=== PATIENT | female | born 1985 | race Caucasian/White ===

== ENCOUNTER → 2021-12-07 10:40 | Outpatient (CLI) | payer BC, SELFPAY ==
[2021-12-07 17:08] LABS: Alanine Aminotransferase 20 U/L (12-78); Albumin Level 4.1 g/dl (3.5-5.0); Albumin/Globulin Ratio 1.5 (1.1-1.8); Alkaline Phosphatase 89 U/L (38-126); Anion Gap 15.3 mEq/L (5-15); Aspartate Amino Transferase 38 U/L (14-36); Bilirubin,Total 0.5 mg/dl (0.2-1.3); Blood Urea Nitrogen 17 mg/dl (7-17); Calcium 9.2 mg/dl (8.4-10.2); Carbon Dioxide 23 mmol/L (22.0-30.0); Chloride 106 mmol/L (98-107); Chol/HDL Ratio 3.6 (1-3.5); Cholesterol 200 mg/dl (140-200); Estimated Glomerular Filt Rate 70 ml/min (>60); GFR (African American) 85 ML/MIN (>60); Globulin 2.7 g/dL (1.3-3.2); Glucose 100 mg/dl (74-100); HDL Cholesterol 56 mg/dl (40-60); Potassium 4.3 mmoL/L (3.5-5.1); Sodium 140 mmol/L (136-145); Total Protein,Serum 6.8 g/dl (6.3-8.2); Triglycerides 75 mg/dl (30-150); VLDL Cholesterol 15 mg/dL (0-40)
[2021-12-07 17:19] LABS: Basophils # 0.1 K/mm3 (0-0.2); Basophils % 1.1 % (0.1-2.0); Eosinophils # 0.2 K/mm3 (0.0-0.4); Eosinophils % 2.7 % (0.1-12.0); Hematocrit 43.4 % (37.0-47.0); Lymphocytes # 1.7 K/mm3 (0.7-4.5); Lymphocytes % 24.6 % (10-50); Mean Corpuscular HGB Conc 34.6 g/dL (31.8-35.4); Mean Corpuscular Hemoglobin 33.6 pg (27.0-31.2); Mean Corpuscular Volume 97.1 fl (81-99); Mean Platelet Volume 10.4 fl (7.4-10.4); Monocytes # 0.5 K/mm3 (0.1-1.0); Monocytes % 6.3 % (1.7-9.3); Neutrophils # 4.6 K/mm3 (1.8-7.8); Neutrophils % 65.2 % (37.0-80.0); Platelet Count 238 K/mm3 (142-424); Red Blood Count 4.47 M/mm3 (4.20-5.40); Red Cell Distribution Width 13.4 % (11.5-17.5); White Blood Count 7.1 K/mm3 (4.8-10.8)
[2021-12-07 17:20] LABS: Direct LDL Cholesterol 107.03 mg/dL (100-129)
[2021-12-07 17:28] LABS: Free T4 (Free Thyroxine) 1.21 ng/dl (0.78-2.19)
[2021-12-07 17:39] LABS: Thyroid Stimulating Hormone 3.76 uIU/mL (0.465-4.68)
== END ==
PROVIDERS: PCP Emergency Medicine; Visit Provider Emergency Medicine
DX: R53.83 Other fatigue (principal); E55.9 Vitamin D deficiency, unspecified; Z79.899 Other long term (current) drug therapy
CPT/HCPCS: 80053; 80061; 82306; 84439; 84443; 85025

== ENCOUNTER → 2022-02-09 06:37 | Outpatient (CLI) | payer MEDICAID, SELFPAY ==
[2022-02-08 19:32] LABS: Amphetamine/Metha Screen,Urine Negative ng/ml (<1000)
[2022-02-08 19:33] LABS: Barbiturates Screen,Urine Negative ng/ml (<200); Benzodiazepines Screen,Urine Negative ng/ml (<200)
[2022-02-08 19:34] LABS: Cannabinoid Screen,Urine Positive ng/ml (<50); Cocaine Screen,Urine Negative ng/ml (<300)
[2022-02-08 19:35] LABS: Methadone Screen,Urine Negative ng/ml (<300)
[2022-02-08 19:36] LABS: Opiate Screen,Urine Positive ng/ml (<300); Phencyclidine Screen,Urine Negative ng/ml (<25)
== END ==
PROVIDERS: PCP Emergency Medicine; Visit Provider Emergency Medicine
DX: Z79.899 Other long term (current) drug therapy (principal)
CPT/HCPCS: 80305

== ENCOUNTER 2022-03-13 17:38 | Emergency (ER) | payer MEDICAID, SELFPAY ==
[2022-03-13 18:10] VITALS: BP 105/60; PULSE 71; RESP 19; TEMP 36.6; O2SAT 99; BMI 22.8
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
--- NOTE | 2022-03-13 18:28 | PC.NURSE ---
PATIENT SENT TO ER PER Conrado DONIS APRN FOR FURTHER EVALUATION. REPORT GIVEN TO Tsering CARDOZA RN BY Conrado DONIS APRN
[2022-03-13 18:32] VITALS: BP 112/64; PULSE 70; RESP 18; TEMP 36.7; O2SAT 99; BMI 22.8
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
--- NOTE | 2022-03-13 18:37 | PC.NURSE ---
ED MD AT BEDSIDE FOR EVALUATION
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
[2022-03-13 18:44] VITALS: BP 112/64; PULSE 64; O2SAT 100
[2022-03-13 18:45] VITALS: PULSE 60; O2SAT 98
--- NOTE | 2022-03-13 18:50 | PC.NURSE ---
PT REPORTS SHE IS A DIFFICULT IV STICK, ATTEMPT X 1 PT C/O PAIN. MD AWARE. STATES OK TO NOT HAVE IV, HAVE PT GIVE UA FOR URINE . PT AGREES
--- NOTE | 2022-03-13 18:55 | PC.NURSE ---
PT ASSISTED TO BR FOR URINE SPECIMEN
[2022-03-13 19:16] LABS: Urine Pregnancy, HCG Qual. Negative (Negative)
[2022-03-13 20:51] VITALS: BP 110/65; PULSE 62; RESP 16; TEMP 36.6; O2SAT 98
--- NOTE | 2022-03-13 20:54 | PC.NURSE ---
Patient left er without being given discharge instructions or medication for abrasions and bandages.
== END 2022-03-13 20:54 | disposition home or self-care (01) ==
LOC: UTC 18:22 → ER 18:30
PROVIDERS: Emergency Provider Emergency Medicine; PCP Emergency Medicine
DX: S90.812A Abrasion, left foot, initial encounter (principal); S30.810A Abrasion of lower back and pelvis, initial encounter; S00.01XA Abrasion of scalp, initial encounter; S16.1XXA Strain of muscle, fascia and tendon at neck level, initial encounter; Y93.89 Activity, other specified; Y92.9 Unspecified place or not applicable; Y99.9 Unspecified external cause status
CPT/HCPCS: 90714; 90471; 70450; 71046; 72125; 72128; 72131; 72170; 73610; 73630; 81025; 99285

== ENCOUNTER → 2022-04-07 06:20 | Outpatient (CLI) | payer MEDICAID, SELFPAY ==
[2022-04-07 19:27] LABS: Amphetamine/Metha Screen,Urine Negative ng/ml (<1000)
[2022-04-07 19:28] LABS: Barbiturates Screen,Urine Negative ng/ml (<200)
[2022-04-07 19:29] LABS: Benzodiazepines Screen,Urine Negative ng/ml (<200); Cannabinoid Screen,Urine Positive ng/ml (<50)
[2022-04-07 19:31] LABS: Cocaine Screen,Urine Negative ng/ml (<300)
[2022-04-07 19:32] LABS: Methadone Screen,Urine Negative ng/ml (<300); Opiate Screen,Urine Negative ng/ml (<300)
[2022-04-07 19:33] LABS: Phencyclidine Screen,Urine Negative ng/ml (<25)
== END ==
PROVIDERS: PCP Emergency Medicine; Visit Provider Emergency Medicine
DX: F41.9 Anxiety disorder, unspecified (principal)
CPT/HCPCS: 80305

== ENCOUNTER → 2022-08-02 11:51 | Outpatient (CLI) | payer MEDICAID, SELFPAY ==
[2022-08-02 16:32] LABS: Amphetamine/Metha Screen,Urine Negative ng/ml (<1000)
[2022-08-02 16:33] LABS: Barbiturates Screen,Urine Negative ng/ml (<200)
[2022-08-02 16:34] LABS: Benzodiazepines Screen,Urine Negative ng/ml (<200); Cannabinoid Screen,Urine Positive ng/ml (<50)
[2022-08-02 16:35] LABS: Cocaine Screen,Urine Negative ng/ml (<300)
[2022-08-02 16:36] LABS: Methadone Screen,Urine Negative ng/ml (<300); Opiate Screen,Urine Negative ng/ml (<300)
[2022-08-02 16:37] LABS: Phencyclidine Screen,Urine Negative ng/ml (<25)
== END ==
PROVIDERS: PCP Emergency Medicine; Visit Provider Emergency Medicine
DX: Z79.899 Other long term (current) drug therapy (principal)
CPT/HCPCS: 80305

== ENCOUNTER → 2022-09-22 15:50 | Outpatient (CLI) | payer MEDICAID, SELFPAY ==
[2022-09-22 16:27] LABS: Amphetamine/Metha Screen,Urine Negative ng/ml (<1000); Barbiturates Screen,Urine Negative ng/ml (<200)
[2022-09-22 16:28] LABS: Benzodiazepines Screen,Urine Negative ng/ml (<200)
[2022-09-22 16:29] LABS: Cannabinoid Screen,Urine Positive ng/ml (<50); Cocaine Screen,Urine Negative ng/ml (<300)
[2022-09-22 16:30] LABS: Methadone Screen,Urine Negative ng/ml (<300)
[2022-09-22 16:31] LABS: Opiate Screen,Urine Positive ng/ml (<300)
[2022-09-22 16:33] LABS: Phencyclidine Screen,Urine Negative ng/ml (<25)
== END ==
PROVIDERS: PCP Emergency Medicine; Visit Provider Emergency Medicine
DX: Z79.899 Other long term (current) drug therapy (principal)
CPT/HCPCS: 80305

== ENCOUNTER → 2022-09-30 13:46 | Outpatient (CLI) | payer MEDICAID, SELFPAY ==
--- NOTE | 2022-09-30 13:47 | MR_ITS ---
FINAL REPORT CLINICAL HISTORY: back pain. right leg weakness COMPARISON: none FINDINGS: Multiplanar MR imaging of the lumbar spine was performed without contrast. On the sagittal T2-weighted images, disc degeneration is seen at L5-S1. The vertebral alignment is normal. There is no evidence of fracture. No bony mass is identified. The conus has an unremarkable appearance. T12-L1: No significant central canal stenosis or neural foraminal narrowing. L1-2: No significant central canal stenosis or neuroforaminal narrowing. L2-3: Annular disc bulge. No significant central canal stenosis or neuroforaminal narrowing. L3-4: Annular disc bulge. No significant central canal stenosis or neuroforaminal narrowing. L4-5: Annular disc bulge. No significant central canal stenosis or neuroforaminal narrowing. L5-S1: Annular disc bulge. Right paracentral disc protrusion. Right S1 nerve root impingement. Mild right neuroforaminal narrowing. IMPRESSION: Degenerative disc disease as above. Reviewed, Interpreted and Dictated by Stas Henson III, MD Transcribed by Rachana Casas Authenticated and . [facility]
== END ==
PROVIDERS: PCP Emergency Medicine; Visit Provider Emergency Medicine
DX: M54.9 Dorsalgia, unspecified (principal); M54.50 Low back pain, unspecified
CPT/HCPCS: 72148; 76376

== ENCOUNTER 2022-10-14 15:30 | Outpatient (RCR) | payer MEDICAID, SELFPAY | END 2022-10-14 15:35 | disposition home or self-care (01) | LOC: PT 15:30 | PROVIDERS: PCP Emergency Medicine; Visit Provider Emergency Medicine | DX: M54.16 Radiculopathy, lumbar region (principal) | CPT/HCPCS: 97163 ==

== ENCOUNTER → 2022-10-20 13:33 | Outpatient (CLI) | payer MEDICAID, SELFPAY ==
[2022-10-20 20:19] LABS: Amphetamine/Metha Screen,Urine Negative ng/ml (<1000); Barbiturates Screen,Urine Negative ng/ml (<200)
[2022-10-20 20:20] LABS: Benzodiazepines Screen,Urine Negative ng/ml (<200)
[2022-10-20 20:21] LABS: Cannabinoid Screen,Urine Positive ng/ml (<50); Cocaine Screen,Urine Negative ng/ml (<300)
[2022-10-20 20:22] LABS: Methadone Screen,Urine Negative ng/ml (<300)
[2022-10-20 20:23] LABS: Phencyclidine Screen,Urine Negative ng/ml (<25)
[2022-10-20 23:14] LABS: Opiate Screen,Urine Negative ng/ml (<300)
== END ==
PROVIDERS: PCP Emergency Medicine; Visit Provider Emergency Medicine
DX: F41.9 Anxiety disorder, unspecified (principal)
CPT/HCPCS: 80305

== ENCOUNTER 2022-12-23 16:06 | Observation (INO) | payer MEDICAID, SELFPAY ==
[2022-12-23] VITALS (7 sets, daily range): BP systolic 116–154; BP diastolic 61–106; PULSE 45–56; RESP 16–20; TEMP 36.8–37.3; O2SAT 95–100; BMI 21.7; BMI 20.9
[2022-12-23 16:33] LABS: Basophils % 0.5 % (0.1-2.0); Eosinophils # 0.2 K/mm3 (0.0-0.4); Eosinophils % 2.9 % (0.1-12.0); Hematocrit 49.4 % (37.0-47.0); Hemoglobin 15.6 g/dL (12.2-16.2); Lymphocytes # 1.5 K/mm3 (0.7-4.5); Lymphocytes % 23.8 % (10-50); Mean Corpuscular HGB Conc 31.7 g/dL (31.8-35.4); Mean Corpuscular Hemoglobin 31.1 pg (27.0-31.2); Mean Platelet Volume 8.9 fl (7.4-10.4); Monocytes # 0.2 K/mm3 (0.1-1.0); Monocytes % 3.7 % (1.7-9.3); Neutrophils # 4.4 K/mm3 (1.8-7.8); Neutrophils % 69.1 % (37.0-80.0); Platelet Count 220 K/mm3 (142-424); Red Blood Count 5.03 M/mm3 (4.20-5.40); Red Cell Distribution Width 13.3 % (11.5-17.5); White Blood Count 6.4 K/mm3 (4.8-10.8)
[2022-12-23 16:42] LABS: Alanine Aminotransferase 30 U/L (12-78); Albumin Level 4.7 g/dl (3.5-5.0); Albumin/Globulin Ratio 1.6 (1.1-1.8); Alkaline Phosphatase 75 U/L (38-126); Anion Gap 15.6 mEq/L (5-15); Aspartate Amino Transferase 44 U/L (14-36); Bilirubin,Total 0.9 mg/dl (0.2-1.3); Blood Urea Nitrogen 11 mg/dl (7-17); Calcium 9.6 mg/dl (8.4-10.2); Carbon Dioxide 23 mmol/L (22.0-30.0); Chloride 105 mmol/L (98-107); Creatinine Clearance Estimated 89 mL/min (50-200); Estimated Glomerular Filt Rate 70 ml/min (>60); GFR (African American) 85 ML/MIN (>60); Globulin 2.9 g/dL (1.3-3.2); Glucose 137 mg/dl (74-100); Lipase 159 U/L (23-300); Potassium 3.6 mmoL/L (3.5-5.1); Sodium 140 mmol/L (136-145); Total Protein,Serum 7.6 g/dl (6.3-8.2)
[2022-12-23 16:58] LABS: HCG Qualitative, Serum Negative (Negative)
[2022-12-23 17:22] LABS: Microscopic, Urine URINE MICROSCOPIC (MICROSCOPIC)
[2022-12-23 17:23] LABS: Appearance,Urine CLEAR (Clear); Bilirubin,Urine Negative (Negative); Blood, Urine 2+ (Negative); Color,Urine YELLOW (Yellow); Glucose,Urine (UA) Negative (Negative); Ketones,Urine 3+ (Negative); Leukocyte Esterase,Urine Negative (Negative); Nitrate,Urine Negative (Negative); Protein,Urine TRACE (Negative); Specific Gravity, Urine 1.015 (1.005-1.030); Urobilinogen,Urine 0.2 EU/dl (0.2)
--- NOTE | 2022-12-23 17:25 | PC.NURSE ---
gave pt ice chips, visitor at bedside
[2022-12-23 17:33] LABS: PH,Urine >= 9.0 (5.0-8.5)
[2022-12-23 17:46] LABS: Bacteria,Urine Trace /lpf; Squamous Epithelial Cell,Urine Occasional #/hpf (0-5)
--- NOTE | 2022-12-23 17:58 | CT_ITS ---
PROCEDURE INFORMATION: Exam: CT Abdomen And Pelvis With Contrast Exam date and time: 12/23/2022 6:17 PM Age: 37 years old Clinical indication: Nausea and vomiting; Abdominal pain; Generalized; Prior surgery; Surgery date: 6+ months; Surgery type: Choleycystectomy, mirena iud placed. ; Additional info: N/v, pain TECHNIQUE: Imaging protocol: Computed tomography of the abdomen and pelvis with contrast. Radiation optimization: All CT scans at this facility use at least one of these dose optimization techniques: automated exposure control; mA and/or kV adjustment per patient size (includes targeted exams where dose is matched to clinical indication); or iterative reconstruction. Contrast material: ISOVUE; Contrast volume: 75 ml; Contrast route: IV; REPORTING DATA: Count of CT and Cardiac NM exams in prior 12 months: This patient has received 4 known CTs and 0 known cardiac nuclear medicine studies in the 12 months prior to the current study. COMPARISON: CR XR PELVIS 1-2V 13/03/2022 19:36 FINDINGS: Tubes, catheters and devices: Intrauterine device is in the expected location. Liver: Normal. No mass. Gallbladder and bile ducts: Gallbladder is absent. Pancreas: Normal. No ductal dilation. Spleen: Normal. No splenomegaly. Adrenal glands: Normal. No mass. Kidneys and ureters: Nonobstructing right renal calculus. Stomach and bowel: Bowel wall thickening of the small bowel and portions of colon. There are borderline dilated segments of proximal small bowel. Appendix: No evidence of appendicitis. Intraperitoneal space: Unremarkable. No free air. No significant fluid collection. Vasculature: The arteries demonstrate minimal atherosclerotic disease. Lymph nodes: Unremarkable. No enlarged lymph nodes. Urinary bladder: Unremarkable as visualized. Reproductive: Unremarkable as visualized. Bones/joints: Unremarkable. No acute fracture. Soft tissues: Unremarkable. IMPRESSION: 1. Nonspecific findings most likely representing enterocolitis with ileus. 2. Nonobstructing right renal calculus.
--- NOTE | 2022-12-23 18:25 | PC.NURSE ---
pt is at ct
[2022-12-23 18:32] LABS: Barbiturates Screen,Urine Negative ng/ml (<200); Benzodiazepines Screen,Urine Negative ng/ml (<200)
[2022-12-23 18:33] LABS: Amphetamine/Metha Screen,Urine Negative ng/ml (<1000); Cannabinoid Screen,Urine Positive ng/ml (<50)
[2022-12-23 18:34] LABS: Cocaine Screen,Urine Negative ng/ml (<300)
[2022-12-23 18:35] LABS: Methadone Screen,Urine Negative ng/ml (<300); Opiate Screen,Urine Positive ng/ml (<300)
[2022-12-23 18:36] LABS: Phencyclidine Screen,Urine Negative ng/ml (<25)
--- NOTE | 2022-12-23 19:17 | HMH.EDGENADL ---
Discharge Plan Disposition Patient Disposition: Admitted Condition: Fair Chief Complaint: Nausea/Vomiting/Diarrhea Prescriptions Prescriptions: No Action diclofenac sodium 1 % gel 2 g topical QID Qty: 100 0RF Rx Instructions: apply to single elbow, wrist or hand; for hand includes palm/fingers/back of hand trazodone 100 mg tablet 100 mg PO HS Qty: 30 2RF clonazepam [Klonopin] 0.5 mg tablet 0.5 mg PO TID Qty: 90 1RF gabapentin 600 mg tablet 600 mg PO TID Qty: 90 1RF oxycodone-acetaminophen [Percocet] 7.5-325 mg tablet 1 tab PO TID Qty: 90 0RF lidocaine 5 % adhesive patch,medicated 1 patch topical DAILY Qty: 30 3RF Rx Instructions: leave on most painful area for up to 12 hrs escitalopram oxalate [Lexapro] 10 mg tablet 10 mg PO DAILY Qty: 30 1RF Referrals Follow up/Referrals: Justin Frias MD [Primary Care Provider] - See instructions Clinical Impressions Clinical Impression: Ileus, Enterocolitis Discharge ED Provider: Jr Moore General Adult HPI General Chief complaint: Nausea/Vomiting/Diarrhea Stated complaint: Vomiting Time Seen by Provider: 12/23/22 16:41 Mode of Arrival: Wheelchair Source of Information: Patient Limitations: No Limitations Description of Symptoms (Recalled from ER Triage Doc. by RN): pt to ed c/o vomiting and bilateral UQ abd pain. pt states she was nauseous yesterday and started vomiting when she got home from work ths morning. pt repors she has had some cramping to her hands. History of Present Illness HPI narrative: 37yo F presents to the ER secondary to nausea and vomiting and abdominal pain. Reports nausea began yesterday and began vomiting when she got home from work this morning. No fever. Reports IUD in place. Underwent cholecystectomy several years ago. Related Data Previous Rx's Medication Instructions Recorded diclofenac sodium 1 % topical gel 2 g topical QID #100 grams 08/02/22 lidocaine 5 % topical patch 1 patch topical DAILY #30 ea 09/22/22 escitalopram oxalate 10 mg tablet 10 mg PO DAILY #30 tabs 10/20/22 (Lexapro) clonazepam 0.5 mg tablet (Klonopin) 0.5 mg PO TID #90 tabs 12/15/22 gabapentin 600 mg tablet 600 mg PO TID #90 tabs 12/15/22 oxycodone-acetaminophen 7.5 mg-325 1 tab PO TID #90 tabs 12/15/22 mg tablet (Percocet) trazodone 100 mg tablet 100 mg PO HS #30 tabs 12/15/22 Allergies Allergy/AdvReac Type Severity Reaction Status Date / Time No Known Allergies Allergy Verified 12/15/22 14:26 [facility] Disclaimer: The information contained in this section may have been updated after the patient was seen, as this information can be updated by other users. Medical History Encounter for insertion of intrauterine contraceptive device (IUD) Menorrhagia Surgical History Hx of cholecystectomy Social History Smoking Status: Current every day smoker tobacco type: cigarettes packs per day: 1 alcohol intake: never substance use type: marijuana current occupational status: unemployed Travel in the last 8 weeks: None ROS Obtained: Yes Systems reviewed as appropriate & no additional complaints except as documented Physical Exam General General appearance: alert and in no apparent distress Head Head exam: atraumatic Eye Eye exam: Present normal appearance and PERRL Neck Neck exam: Present normal inspection and trachea midline Respiratory Respiratory exam: Present normal lung sounds bilaterally; Absent respiratory distress Cardiovascular Cardiovascular exam: Present regular rate, normal rhythm and normal heart sounds Abdominal Exam Abdominal exam: Present soft, tenderness (Diffuse, mild) and normal bowel sounds; Absent distention Neurological Exam Neurological exam: Present alert, oriented X3 and CN II-XII intact Psychiatric Psych
[2022-12-23 19:25] LABS: Coronavirus 19, PCR Not Detected (NotDetected); Influenza A, PCR Not Detected (NotDetected); Influenza B, PCR Not Detected (NotDetected)
--- NOTE | 2022-12-23 19:30 | EXP.HP ---
History of Present Illness *Admission Date: 12/23/22 *Reason for visit:: Abdominal pain, nausea, vomiting *History of present illness: Ms. Fay is a 37-year-old female with a past medical history of chronic back pain and anxiety. She presents to due to a 1-day history of persistent abdominal pain associated with nausea and vomiting. She denies diarrhea or constipation, she reports her last normal bowel movement was on 12/22. In the ER, the patient underwent a CT of the abdomen and pelvis that showed non-specific findings representing enterocolitis with ileus. UDS was positive for THC and opiates. Serum hcg was negative. Urinalysis was unremarkable along with CBC and CMP. In the ER the patient was given Haldol, iv fluids and Beladonna. The patient was admitted with initial impression: Ileus. [facility] Disclaimer: The information contained in this section may have been updated after the patient was seen, as this information can be updated by other users. Medical History (Updated 12/23/22 @ 19:36 by Edmond Nguyen DNP) Anxiety disorder Chronic back pain Encounter for insertion of intrauterine contraceptive device (IUD) Menorrhagia Surgical History Hx of cholecystectomy Social History Smoking Status: Current every day smoker tobacco type: cigarettes packs per day: 1 alcohol intake: never substance use type: marijuana current occupational status: unemployed Travel in the last 8 weeks: None Review of Systems Constitutional Constitutional: Reports chills Eyes Eyes: Reports system reviewed and no additional complaints, except as documented ENT Ears, Nose, Mouth, and Throat: Reports system reviewed and no additional complaints, except as documented *Cardiovascular Cardiovascular: Reports system reviewed and no additional complaints, except as documented *Respiratory Respiratory: Reports system reviewed and no additional complaints, except as documented *Gastrointestinal Gastrointestinal: Reports abdominal pain, Reports nausea and Reports vomiting *Genitourinary Genitourinary: Reports system reviewed and no additional complaints, except as documented *Musculoskeletal Musculoskeletal: Reports back pain Integumentary/Breasts Skin/Breast: Reports system reviewed and no additional complaints, except as documented *Neurologic Neurologic: Reports system reviewed and no additional complaints, except as documented Psychiatric Psychiatric: Reports anxiety Endocrine Endocrine: Reports system reviewed and no additional complaints, except as documented Hematologic/Lymphatic Hematologic/Lymphatic: Reports system reviewed and no additional complaints, except as documented Allergic/Immunologic Allergic/Immunologic: Reports system reviewed and no additional complaints, except as documented Meds Home Medications and Allergies Home Medications Medication Instructions Recorded Confirmed Type clonazepam 0.5 mg tablet (Klonopin) 0.5 mg PO TID Anxiety 12/23/22 12/23/22 History diclofenac sodium 1 % topical gel 2 g topical QID Pain 12/23/22 12/23/22 History escitalopram oxalate 10 mg tablet 10 mg PO DAILY Anxiety 12/23/22 12/23/22 History (Lexapro) gabapentin 600 mg tablet 600 mg PO TID Pain 12/23/22 12/23/22 History lidocaine 5 % topical patch 1 patch topical DAILY Pain 12/23/22 12/23/22 History oxycodone-acetaminophen 7.5 mg-325 1 tab PO TID Pain 12/23/22 12/23/22 History mg tablet (Percocet) trazodone 100 mg tablet 100 mg PO HS Insomnia 12/23/22 12/23/22 History New Prescriptions to Start Prescriptions: Allergies Allergy/AdvReac Type Severity Reaction Status Date / Time No Known Allergies Allergy Verified 12/15/22 14:26 Exam Data for Last 24 hours Vital signs and Labs for Last 24 Hours: Temp Pulse Resp BP Pulse Ox 98.7 F 46 L 20 154/106 H 100
--- NOTE | 2022-12-23 19:32 | PC.NURSE ---
Rounded on pt. No needs or complaints voiced at this time.
--- NOTE | 2022-12-23 20:26 | PC.WOUNDNOTE ---
attempted to call report to second floor. the nurse states she will return my call in just a few minutes.
--- NOTE | 2022-12-23 20:36 | PC.NURSE ---
Updated family that we are waiting to call report to the floor nurse. He advised he was going to go home and shower and then would be back.
--- NOTE | 2022-12-23 20:41 | PC.NURSE ---
spoke with Shagufta Tsang on second for report
--- NOTE | 2022-12-23 20:57 | PC.NURSE ---
Pt arrived to the floor via wheelchair @[id number]
--- NOTE | 2022-12-23 21:19 | ECG_ITS ---
APPROVED REPORT Exam: Resting ECG HR:43 bpm ECG Measurements Heart Rate 43 AXES UT 147 P 73 QRSd 85 QRS 77 QT 498 T 66 QTc 445 Conclusion SINUS BRADYCARDIA POSSIBLE RIGHT VENTRICULAR CONDUCTION DELAY [RSR (QR) IN V1/V2] BORDERLINE ECG UNCONFIRMED REPORT Electronically signed by : Primitivo Vargas MD 12/25/2022 07:03:00
[2022-12-24 04:00] VITALS: BP 117/58; PULSE 51; RESP 18; TEMP 37.6; O2SAT 97; BMI 20.9
--- NOTE | 2022-12-24 07:00 | XR_ITS ---
FINAL REPORT CLINICAL HISTORY: ileus COMPARISON: none FINDINGS: SINGLE VIEW ABDOMEN A single view of the abdomen was obtained. There is a nonobstructive bowel gas pattern. There are no abnormally dilated loops of small bowel. There is an 8 mm calcification that projects over the right kidney suggesting a right renal stone. Surgical clips are present in the right upper quadrant suggesting a prior cholecystectomy. An IUD is noted in the pelvis. A moderate amount of stool is present in the colon. IMPRESSION: Nonobstructive bowel gas pattern. 8 mm calcification projecting over the right renal shadow suggesting a renal stone. Reviewed, Interpreted and Dictated by Ector Govea MD Transcribed by Adriana Lundberg Authenticated and [facility]
[2022-12-24 07:13] LABS: Chloride 107 mmol/L (98-107); Potassium 3.9 mmoL/L (3.5-5.1); Sodium 138 mmol/L (136-145)
[2022-12-24 07:14] LABS: Basophils % 0.1 % (0.1-2.0); Eosinophils # 0.1 K/mm3 (0.0-0.4); Eosinophils % 1.1 % (0.1-12.0); Hematocrit 40.3 % (37.0-47.0); Lymphocytes # 1.1 K/mm3 (0.7-4.5); Lymphocytes % 13.2 % (10-50); Mean Corpuscular HGB Conc 32.5 g/dL (31.8-35.4); Mean Corpuscular Hemoglobin 31.8 pg (27.0-31.2); Mean Corpuscular Volume 97.9 fl (81-99); Mean Platelet Volume 9.1 fl (7.4-10.4); Monocytes # 0.4 K/mm3 (0.1-1.0); Monocytes % 4.2 % (1.7-9.3); Neutrophils # 6.9 K/mm3 (1.8-7.8); Neutrophils % 81.4 % (37.0-80.0); Platelet Count 174 K/mm3 (142-424); Red Blood Count 4.12 M/mm3 (4.20-5.40); Red Cell Distribution Width 13.4 % (11.5-17.5); White Blood Count 8.4 K/mm3 (4.8-10.8)
[2022-12-24 07:16] LABS: Alanine Aminotransferase 31 U/L (12-78); Albumin/Globulin Ratio 1.5 (1.1-1.8); Alkaline Phosphatase 54 U/L (38-126); Anion Gap 12.9 mEq/L (5-15); Aspartate Amino Transferase 39 U/L (14-36); Bilirubin,Total 0.7 mg/dl (0.2-1.3); Blood Urea Nitrogen 9 mg/dl (7-17); Carbon Dioxide 22 mmol/L (22.0-30.0); Creatinine Clearance Estimated 110 mL/min (50-200); Estimated Glomerular Filt Rate 94 ml/min (>60); GFR (African American) 113 ML/MIN (>60); Globulin 2.7 g/dL (1.3-3.2); Total Protein,Serum 6.7 g/dl (6.3-8.2)
[2022-12-24 07:17] LABS: Calcium 8.7 mg/dl (8.4-10.2); Glucose 112 mg/dl (74-100)
[2022-12-24 07:27] LABS: Hemoglobin 13.3 g/dL (12.2-16.2)
--- NOTE | 2022-12-24 07:52 | HMH.PHAINT1 ---
Pharmacy Intervention Comments: home medication list verified using list from [employer] [facility]
[2022-12-24 07:54] VITALS: BP 115/57; PULSE 52; RESP 18; TEMP 37.2; O2SAT 99
--- NOTE | 2022-12-24 08:29 | EXP.SURG.CON ---
History of Present Illness *Admission Date: 12/23/22 *Reason for visit:: Ileus *History of present illness: Asked to see patient in consultation from hospitalist service for ileus Patient is a 37-year-old female from [facility] with history of chronic back pain and anxiety. She is on clonazepam, Lexapro, gabapentin, oxycodone, trazodone. She had recently been switched from hydrocodone to oxycodone. She has previously had cholecystectomy. She normally only moves her bowels about once weekly. She presented to [facility] emergency department yesterday afternoon on 12/23/2022 with a 1 day history of abdominal pain with associated nausea and vomiting. She was evaluated by Dr. Moore. She had a normal bowel movement on 12/22/2022. CT scan was performed which revealed findings of some bowel wall thickening of small bowel and portions of colon which was read as nonspecific findings most likely representing enterocolitis with ileus. CBC and CMP were unremarkable. Urine toxicology is positive for opiates and THC. Her symptoms persisted in the emergency department despite medical treatment. She was admitted for inpatient management with a diagnosis of ileus . Surgical consultation was obtained. [facility] Disclaimer: The information contained in this section may have been updated after the patient was seen, as this information can be updated by other users. Medical History (Updated 12/23/22 @ 19:36 by Edmond Nguyen DNP) Anxiety disorder Chronic back pain Encounter for insertion of intrauterine contraceptive device (IUD) Menorrhagia Surgical History Hx of cholecystectomy Social History Smoking Status: Current every day smoker tobacco type: cigarettes packs per day: 1 alcohol intake: never substance use type: marijuana current occupational status: unemployed Travel in the last 8 weeks: None Review of Systems *Neurologic Neurologic: Reports system reviewed and no additional complaints, except as documented Meds Home Medications and Allergies Home Medications Medication Instructions Recorded Confirmed Type clonazepam 0.5 mg tablet (Klonopin) 0.5 mg PO TID Anxiety 12/23/22 12/23/22 History diclofenac sodium 1 % topical gel 2 g topical QID Pain 12/23/22 12/23/22 History escitalopram oxalate 10 mg tablet 10 mg PO DAILY Anxiety 12/23/22 12/23/22 History (Lexapro) gabapentin 600 mg tablet 600 mg PO TID Pain 12/23/22 12/23/22 History lidocaine 5 % topical patch 1 patch topical DAILY Pain 12/23/22 12/23/22 History oxycodone-acetaminophen 7.5 mg-325 1 tab PO TID Pain 12/23/22 12/23/22 History mg tablet (Percocet) trazodone 100 mg tablet 100 mg PO HS Insomnia 12/23/22 12/23/22 History New Prescriptions to Start Prescriptions: Allergies Allergy/AdvReac Type Severity Reaction Status Date / Time No Known Allergies Allergy Verified 12/15/22 14:26 Exam (Inpt) Vital signs and Labs for Last 24 Hours: Temp Pulse Resp BP Pulse Ox 98.9 F 52 L 18 115/57 L 99 12/24/22 07:54 12/24/22 07:54 12/24/22 07:54 12/24/22 07:54 12/24/22 07:54 Laboratory Results - last 24 hr 12/23/22 16:15: WBC 6.4, RBC 5.03, Hgb 15.6, Hct 49.4 H, MCV 98.0, MCH 31.1, MCHC 31.7 L, RDW 13.3, Plt Count 220, MPV 8.9, Neut % (Auto) 69.1, Lymph % (Auto) 23.8, [place] % (Auto) 3.7, Eos % (Auto) 2.9, Baso % (Auto) 0.5, Neut # (Auto) 4.4, Lymph # (Auto) 1.5, [place] # (Auto) 0.2, Eos # (Auto) 0.2, Baso # (Auto) 0.0 12/23/22 16:15: Sodium 140, Potassium 3.6, Chloride 105, Carbon Dioxide 23, Anion Gap 15.6 H, BUN 11, Creatinine 0.90, Estimated Creat Clear 89, Estimated GFR 70, Est GFR ( Amer) 85, Glucose 137 H, Calcium 9.6, Total Bilirubin 0.9, AST 44 H, ALT 30, Alkaline Phosphatase 75, Total Protein 7.6, Albumin 4.7, Globulin 2.9, Albumin/Globulin Ratio 1.6, Lipase 159 12/23/22 16:15: Serum HCG, Qual
--- NOTE | 2022-12-24 09:01 | EXP.ACUTE.PN ---
Subjective *Date: 12/24/22 *Time: 09:44 Interval history: 37 year old female presents to the ED with c/o abdominal pain, nausea, and vomiting for one day. PMHX of chronic back pain and anxiety. She denies diarrhea or constipation, she reports her last normal bowel movement was on 12/22. Lab workup in the ED was unremarkable. Her CT of the abdomen and pelvis that showed non-specific findings representing enterocolitis with ileus.? UDS was positive for THC and opiates and urinalysis was unremarkable. In the ED the patient was given Haldol, iv fluids and Beladonna.? The patient's case was discussed with the Hospitalist team. The patient was addmitted for medical management of ileus and a surgical consult was placed. This morning the patient resting well. Denies any nausea or vomiting this morning. Her abdomen is soft and nontender with active bowel sounds. Her diet will be advanced to clear liquids and she will be started on a bowel regimen. Medical Exam Vital signs and Labs for Last 24 Hours: Vital Signs Temp Pulse Pulse Resp BP BP Pulse Ox 12/24/22 07:54 98.9 F 52 L 18 115/57 L 99 12/24/22 04:00 99.7 F H 51 L 18 117/58 L 97 12/23/22 22:00 99.2 F 51 L 18 135/72 95 12/23/22 20:42 98.3 F 53 L 16 116/66 12/23/22 19:32 45 L 124/76 95 12/23/22 17:01 46 L 154/106 H 100 12/23/22 16:31 54 L 135/61 100 12/23/22 16:15 56 L 151/99 H 100 12/23/22 16:18 98.7 F 52 L 20 151/99 H 100 Intake and Output 12/23/22 12/24/22 12/24/22 23:59 07:59 15:59 Intake Total 1000 / 1516 516 / 516 Output Total 0 / 0 0 / 0 Balance 1000 / 1516 516 / 516 Intake: Intake, Total IV Amount 1000 / 1516 516 / 516 0.9 % Sodium Chloride 1000ML 1, 516 / 516 000 ml @ 100 mls/hr IV .Q10H [facility] Rx#:[id number] Output: Output, Urine Amount 0 / 0 0 / 0 Other: Number of Unmeasured Voids 1 1 Weight 64.042 kg 64.042 kg Patient Weight 12/24/22 23:59 Weight 64.042 kg Laboratory Results - last 24 hr 12/23/22 16:15: WBC 6.4, RBC 5.03, Hgb 15.6, Hct 49.4 H, MCV 98.0, MCH 31.1, MCHC 31.7 L, RDW 13.3, Plt Count 220, MPV 8.9, Neut % (Auto) 69.1, Lymph % (Auto) 23.8, [place] % (Auto) 3.7, Eos % (Auto) 2.9, Baso % (Auto) 0.5, Neut # (Auto) 4.4, Lymph # (Auto) 1.5, [place] # (Auto) 0.2, Eos # (Auto) 0.2, Baso # (Auto) 0.0 12/23/22 16:15: Sodium 140, Potassium 3.6, Chloride 105, Carbon Dioxide 23, Anion Gap 15.6 H, BUN 11, Creatinine 0.90, Estimated Creat Clear 89, Estimated GFR 70, Est GFR ( Amer) 85, Glucose 137 H, Calcium 9.6, Total Bilirubin 0.9, AST 44 H, ALT 30, Alkaline Phosphatase 75, Total Protein 7.6, Albumin 4.7, Globulin 2.9, Albumin/Globulin Ratio 1.6, Lipase 159 12/23/22 16:15: Serum HCG, Qual Negative 12/23/22 17:16: Urine Color Yellow, Urine Appearance Clear, Urine pH >= 9.0 H, Ur Specific [place] 1.015, Urine Protein Trace, Urine Glucose (UA) Negative, Urine Ketones 3+, Urine Blood 2+, Urine Nitrate Negative, Urine Bilirubin Negative, Urine Urobilinogen 0.2, Ur Leukocyte Esterase Negative, Urine RBC 3-5, Urine WBC None, Ur Squamous Epith Cells Occasional, Urine Bacteria Trace 12/23/22 17:16: Urine Opiates Screen Positive H, Urine Methadone Screen Negative, Ur Barbituates Screen Negative, Ur Phencyclidine Scrn Negative, Ur Amphetamines Screen Negative, U Benzodiazepines Scrn Negative, Urine Cocaine Screen Negative, U Marijuana (THC) Screen Positive H 12/23/22 19:20: SARS-CoV-2 (PCR) Not detected, Influenza A Untype (PCR) Not detected, Influenza Type B (PCR) Not detected 12/24/22 06:55: WBC 8.4 D, RBC 4.12 L, Hgb 13.3 D, Hct 40.3, MCV 97.9, MCH 31.8 H, MCHC 32.5, RDW 13.4, Plt Count 174, MPV 9.1, Neut % (Auto) 81.4 H, Lymph % (Auto) 13.2, [place] % (Auto) 4.2, Eos % (Auto) 1.1, Baso % (Auto) 0.1, Neut # (Auto) 6.9, Lymph # (Auto) 1.1, [place] # (Auto) 0.4, Eos # (Auto) 0.1, Baso # (Auto) 0.0 12/24/22 06:55: Sodium 138, Potassium 3.9, Chloride 107, Carbon Dioxide 22, Anion Gap 12.9, BUN
--- NOTE | 2022-12-24 15:33 | EXP.DC.SUM ---
General Admission date:: 12/23/22 Discharge date: 12/24/22 HPI HPI HPI: Asked to see patient in consultation from hospitalist service for ileus Patient is a 37-year-old female from [facility] with history of chronic back pain and anxiety. She is on clonazepam, Lexapro, gabapentin, oxycodone, trazodone. She had recently been switched from hydrocodone to oxycodone. She has previously had cholecystectomy. She normally only moves her bowels about once weekly. [facility] afternoon on 12/23/2022 with a 1 day history of abdominal pain with associated nausea and vomiting. She was evaluated by Dr. Moore. She had a normal bowel movement on 12/22/2022. CT scan was performed which revealed findings of some bowel wall thickening of small bowel and portions of colon which was read as nonspecific findings most likely representing enterocolitis with ileus. CBC and CMP were unremarkable. Urine toxicology is positive for opiates and THC. Her symptoms persisted in the emergency department despite medical treatment. She was admitted for inpatient management with a diagnosis of ileus . Surgical consultation was obtained. Hospital Course Hospital Course Hospital Course: 37-year-old female with history of chronic back pain and anxiety disorder presents with a 1-day history of abdominal pain associated with nausea and vomiting, CT of the abdomen concerning for ileus. Has done well since admission. Patient having bowel movements. Tolerating oral intake. Requesting to go home. Given that she is tolerating oral nutrition and having bowel movements with no further nausea or vomiting, stable for discharge home. Problems addressed as follows: - Ileus Presents with 1-day history of abdominal pain associated with nausea, vomiting. CT obtained showing enterocolitis and ileus. No focal transition zone or significant dilation. Bowel rest overnight with n.p.o. Treated with IV fluids overnight. No overt electrolyte disturbances or endorgan damage. Surgery consulted, recommended advancing diet. Initiated on bowel regimen given her chronic opiate use. Has felt better through the morning. Tolerating liquids without difficulty. No further nausea or vomiting. Having bowel movements. Stable for discharge home. Antiemetics and bowel regimen sent to her pharmacy. - Anxiety Disorder: Continue home Klonopin as needed. Continue home Lexapro. - Chronic Back Pain: Continue home regimen with Percocet. Would consider decreasing back to hydrocodone as patient states she has not had much benefit with the change. We will initiate bowel regimen to address opiate-induced constipation and ileus. Docusate/senna daily as needed. Stable for discharge home. Exam Data for Last 24 hours Vital signs and Labs for Last 24 Hours: Temp Pulse Resp BP Pulse Ox 98.9 F 52 L 18 115/57 L 99 12/24/22 07:54 12/24/22 07:54 12/24/22 07:54 12/24/22 07:54 12/24/22 07:54 Laboratory Results - last 24 hr 12/23/22 16:15: WBC 6.4, RBC 5.03, Hgb 15.6, Hct 49.4 H, MCV 98.0, MCH 31.1, MCHC 31.7 L, RDW 13.3, Plt Count 220, MPV 8.9, Neut % (Auto) 69.1, Lymph % (Auto) 23.8, [place] % (Auto) 3.7, Eos % (Auto) 2.9, Baso % (Auto) 0.5, Neut # (Auto) 4.4, Lymph # (Auto) 1.5, [place] # (Auto) 0.2, Eos # (Auto) 0.2, Baso # (Auto) 0.0 12/23/22 16:15: Sodium 140, Potassium 3.6, Chloride 105, Carbon Dioxide 23, Anion Gap 15.6 H, BUN 11, Creatinine 0.90, Estimated Creat Clear 89, Estimated GFR 70, Est GFR ( Amer) 85, Glucose 137 H, Calcium 9.6, Total Bilirubin 0.9, AST 44 H, ALT 30, Alkaline Phosphatase 75, Total Protein 7.6, Albumin 4.7, Globulin 2.9, Albumin/Globulin Ratio 1.6, Lipase 159 12/23/22 16:15: Serum HCG, Qual Negative 12/23/22 17:16: Urine Color Yellow, Urine Appearance Clear, Urine pH >= 9.0 H, Ur Specific [place] 1.015, Urine Protein Trace, Urine Glucose (UA) Negative, Urine Ketones 3+, Urine Blood 2+, Urine
--- NOTE | 2022-12-24 15:44 | HMH.PHAINT1 ---
Pharmacy Intervention Comments: DISCHARGE MEDICATION COUNSELING PROVIDED. DISCUSSED THE FOLLOWING NEW MEDICATIONS: -PROMETHAZINE (FOR N/V, EVERY 8 HOURS NEEDED, SEDATION, BLURRY VISION, DRY MOUTH POSSIBLE) -DOCUSATE-SENNA (STOOL SOFTENER, DAILY NEEDED FOR CONSTIPATION, BLOATING/UPSET STOMACH POSSIBLE) PATIENT VERBALIZED NO QUESTIONS AT THIS TIME.
--- NOTE | 2022-12-27 15:12 | CARE MANAGER ---
Spoke with patient for post-discharge phone interview, no issues noted.
== END 2022-12-24 15:52 | disposition home or self-care (01) ==
LOC: ER 19:23 → 2ND 21:41
PROVIDERS: Nurse Practitioner Family; Admitting Provider Internal Medicine Adolescent Medicine; Emergency Provider Family Medicine; PCP Emergency Medicine; Visit Provider Internal Medicine Adolescent Medicine
DX: K56.7 Ileus, unspecified (principal); F17.210 Nicotine dependence, cigarettes, uncomplicated; M54.9 Dorsalgia, unspecified; G89.29 Other chronic pain; F41.9 Anxiety disorder, unspecified; Z79.899 Other long term (current) drug therapy
CPT/HCPCS: 36415; 74018; 74177; 80053; 80305; 81001; 83690; 84703; 85025; 87636; 93005; 99285; C9803; G0378; J2405; Q9967; U0003; U0005

== ENCOUNTER → 2023-02-08 19:01 | Outpatient (CLI) | payer MEDICAID, SELFPAY ==
[2023-02-08 13:56] LABS: Amphetamine/Metha Screen,Urine Negative ng/ml (<1000)
[2023-02-08 13:57] LABS: Barbiturates Screen,Urine Negative ng/ml (<200); Benzodiazepines Screen,Urine Negative ng/ml (<200)
[2023-02-08 13:58] LABS: Cannabinoid Screen,Urine Positive ng/ml (<50); Cocaine Screen,Urine Negative ng/ml (<300)
[2023-02-08 13:59] LABS: Methadone Screen,Urine Negative ng/ml (<300)
[2023-02-08 14:00] LABS: Opiate Screen,Urine Negative ng/ml (<300); Phencyclidine Screen,Urine Negative ng/ml (<25)
== END ==
PROVIDERS: PCP Emergency Medicine; Visit Provider Emergency Medicine
DX: Z79.899 Other long term (current) drug therapy (principal)
CPT/HCPCS: 80305

== ENCOUNTER 2023-03-12 19:09 | Emergency (ER) | payer MEDICAID, SELFPAY ==
[2023-03-12 19:10] VITALS: BP 146/84; PULSE 86; RESP 16; TEMP 37; O2SAT 98; BMI 21.2
--- NOTE | 2023-03-12 19:25 | PC.NURSE ---
small abrasion noted to left knee, 0.5 cm laceration noted to lower lip, no bleeding noted
--- NOTE | 2023-03-12 19:33 | HMH.EDGENADL ---
Discharge Plan Disposition Patient Disposition: Home, Self-Care Condition: Good Prescriptions Prescriptions: New amoxicillin-pot clavulanate 875-125 mg tablet 1 tab PO BID Qty: 14 0RF No Action gabapentin 600 mg tablet 600 mg PO TID Qty: 90 1RF clonazepam [Klonopin] 0.5 mg tablet 0.5 mg PO TID Qty: 90 1RF oxycodone-acetaminophen [Percocet] 7.5-325 mg tablet 1 tab PO TID Qty: 90 0RF trazodone 100 mg tablet 100 mg PO QHS Qty: 30 2RF escitalopram oxalate 10 mg tablet See Rx Instructions .ROUTE .COMPLEX Qty: 30 1RF Dose Instruction: TAKE 1 TABLET 1 TIME EACH DAY Rx Instructions: TAKE 1 TABLET 1 TIME EACH DAY lidocaine 5 % adhesive patch,medicated See Rx Instructions .ROUTE .COMPLEX Qty: 30 0RF Dose Instruction: APPLY 1 PATCH TOPICALLY ONCE DAILY AND LEAVE ON MOST PAINFUL AREA FOR UP TO 12 HOURS Rx Instructions: APPLY 1 PATCH TOPICALLY ONCE DAILY AND LEAVE ON MOST PAINFUL AREA FOR UP TO 12 HOURS diclofenac sodium 1 % gel 2 g topical QID Rx Instructions: apply to single elbow, wrist or hand; for hand includes palm/fingers/back of hand sennosides-docusate sodium [Stool Softener-Stimulant Laxat] 8.6-50 mg Tablet 1 tab PO DAILY PRN (Reason: Constipation) 30 Days Qty: 30 0RF promethazine 25 mg tablet 25 mg PO TID PRN (Reason: nausea and vomiting) 5 Days Qty: 15 0RF Referrals Follow up/Referrals: Justin Frias MD [Primary Care Provider] - See instructions Activity Restrictions/Add. Instructions Additional Instructions/Restrictions: At this time it was felt you are safe to be discharged home. If new or worsening symptoms please do not hesitate to return the emergency department. Please follow-up with your family doctor in 1 week for continued evaluation of healing of your laceration. Please take your antibiotics as prescribed for your tooth fracture and follow-up with your dentist as soon as you are able. Clinical Impressions Clinical Impression: Blunt trauma, Fracture of tooth, Laceration of lip Discharge ED Provider: Dallas Coker General Adult HPI General Chief complaint: Dental/Oral Stated complaint: AO08/ fall mouth inj Time Seen by Provider: 03/12/23 19:13 Mode of Arrival: Ambulatory Source of Information: Patient Limitations: No Limitations Description of Symptoms (Recalled from ER Triage Doc. by RN): pt reports she was walking up stairs and tripped on her shoe, complains of laceration to bottom lip and broken upper tooth, bleeding controlled History of Present Illness HPI narrative: Patient is a 37-year-old female with no pertinent past medical history presents emergency department for evaluation of traumatic injury sustained in a fall. Patient tripped while in difficult walking shoes going up stairs. No loss of consciousness. Patient struck her front teeth and bit her lip and presents here for continued evaluation. Last tetanus greater than 5 years ago. No other acute complaints at this time. Denies anticoagulation. Related Data Home Medications Medication Instructions Recorded Confirmed diclofenac sodium 1 % topical gel 2 g topical QID Pain 12/23/22 02/08/23 Previous Rx's Medication Instructions Recorded promethazine 25 mg tablet 25 mg PO TID PRN nausea and 12/24/22 vomiting 5 days #15 tabs sennosides 8.6 mg-docusate sodium 1 tab PO DAILY PRN Constipation 30 12/24/22 50 mg tablet (Stool days #30 tabs Softener-Stimulant Laxative) clonazepam 0.5 mg tablet (Klonopin) 0.5 mg PO TID Anxiety #90 tabs 02/08/23 gabapentin 600 mg tablet 600 mg PO TID Pain #90 tabs 02/08/23 oxycodone-acetaminophen 7.5 mg-325 1 tab PO TID Pain #90 tabs 02/08/23 mg tablet (Percocet) escitalopram oxalate 10 mg tablet See Rx Instructions .Route 02/15/23 .COMPLEX #30 tabs trazodone 100 mg tablet 100 mg PO QHS Insomnia #30 tabs 02/15/23 lidocaine 5 % topical patch See Rx Instructions .Route 02/18/23 .COMPLEX #30 patches
--- NOTE | 2023-03-12 20:55 | PC.NURSE ---
Provider at bedside doing laceration repair of lip
--- NOTE | 2023-03-12 20:58 | PC.NURSE ---
Misael Terry at
[2023-03-12 21:15] VITALS: BP 145/86; PULSE 84; RESP 16; TEMP 36.9
== END 2023-03-12 21:16 | disposition home or self-care (01) ==
PROVIDERS: Emergency Provider Emergency Medicine; PCP Emergency Medicine
DX: S02.5XXA Fracture of tooth (traumatic), initial encounter for closed fracture (principal); S01.511A Laceration without foreign body of lip, initial encounter; F41.9 Anxiety disorder, unspecified; F17.210 Nicotine dependence, cigarettes, uncomplicated; W10.9XXA Fall (on) (from) unspecified stairs and steps, initial encounter
CPT/HCPCS: 90715; 96372; 99283

== ENCOUNTER → 2023-03-23 23:32 | Outpatient (CLI) | payer MEDICAID, SELFPAY ==
[2023-03-23 19:18] LABS: Adenovirus,PCR Not Detected (NotDetected); Bordetella Pertussis Not Detected (NotDetected); Chlamydophila Pneumoniae, PCR Not Detected (NotDetected); Coronavirus 19, PCR Not Detected (NotDetected); Coronavirus 229E Not Detected (NotDetected); Coronavirus NL63 Not Detected (NotDetected); Coronavirus OC43 Not Detected (NotDetected); Coronovirus HKU1,PCR Not Detected (NotDetected); Human Metapneumovirus Not Detected (NotDetected); Influenza A, PCR Not Detected (NotDetected); Influenza AH1, 2009 Not Detected (NotDetected); Influenza AH1, PCR Not Detected (NotDetected); Influenza AH3,PCR Not Detected (NotDetected); Influenza B, PCR Not Detected (NotDetected); Mycoplasma Pneumoniae, PCR Not Detected (NotDetected); Parainfluenza 1, PCR Not Detected (NotDetected); Parainfluenza 2, PCR Not Detected (NotDetected); Parainfluenza 3, PCR Not Detected (NotDetected); Parainfluenza 4, PCR Not Detected (NotDetected); Respiratory Syncytial Virus Not Detected (NotDetected); Rhinovirus/Enterovirus Not Detected (NotDetected)
[2023-03-23 19:57] LABS: Basophils % 0.4 % (0.1-2.0); Eosinophils # 0.1 K/mm3 (0.0-0.4); Eosinophils % 1.7 % (0.1-12.0); Hematocrit 45.1 % (37.0-47.0); Hemoglobin 14.6 g/dL (12.2-16.2); Lymphocytes # 1.7 K/mm3 (0.7-4.5); Lymphocytes % 25.9 % (10-50); Mean Corpuscular HGB Conc 32.3 g/dL (31.8-35.4); Mean Corpuscular Hemoglobin 32.2 pg (27.0-31.2); Mean Corpuscular Volume 99.7 fl (81-99); Monocytes # 0.3 K/mm3 (0.1-1.0); Neutrophils # 4.3 K/mm3 (1.8-7.8); Platelet Count 166 K/mm3 (142-424); Red Blood Count 4.52 M/mm3 (4.20-5.40); Red Cell Distribution Width 13.2 % (11.5-17.5); White Blood Count 6.4 K/mm3 (4.8-10.8)
[2023-03-23 20:47] LABS: Alanine Aminotransferase 14 U/L (12-78); Albumin Level 4.1 g/dl (3.5-5.0); Albumin/Globulin Ratio 1.2 (1.1-1.8); Alkaline Phosphatase 71 U/L (38-126); Anion Gap 14.4 mEq/L (5-15); Aspartate Amino Transferase 25 U/L (14-36); Bilirubin,Total 0.3 mg/dl (0.2-1.3); Blood Urea Nitrogen 13 mg/dl (7-17); Calcium 9.3 mg/dl (8.4-10.2); Carbon Dioxide 25 mmol/L (22.0-30.0); Chloride 106 mmol/L (98-107); Chol/HDL Ratio 3.1 (1-3.5); Cholesterol 168 mg/dl (140-200); Estimated Glomerular Filt Rate 80 ml/min (>60); GFR (African American) 97 ML/MIN (>60); Globulin 3.3 g/dL (1.3-3.2); Glucose 70 mg/dl (74-100); HDL Cholesterol 55 mg/dl (40-60); Potassium 4.4 mmoL/L (3.5-5.1); Sodium 141 mmol/L (136-145); Total Protein,Serum 7.4 g/dl (6.3-8.2); Triglycerides 77 mg/dl (30-150); VLDL Cholesterol 15 mg/dL (0-40)
[2023-03-23 20:59] LABS: Direct LDL Cholesterol 91.34 mg/dL (100-129)
[2023-03-23 21:02] LABS: 25-OH Vitamin D, Total 29.9 ng/mL (30-100)
[2023-03-23 21:21] LABS: Thyroid Stimulating Hormone 1.74 uIU/mL (0.465-4.68)
== END ==
LOC: LAB.DROPOF 23:33
PROVIDERS: PCP Emergency Medicine; Visit Provider Emergency Medicine
DX: K52.9 Noninfective gastroenteritis and colitis, unspecified (principal); R11.0 Nausea; R53.83 Other fatigue; E55.9 Vitamin D deficiency, unspecified; R69 Illness, unspecified
CPT/HCPCS: 80053; 80061; 82306; 84436; 84443; 85025; 87581; 87632; 87798

== ENCOUNTER → 2023-04-12 16:52 | Outpatient (CLI) | payer MEDICAID, SELFPAY ==
[2023-04-12 17:34] LABS: Barbiturates Screen,Urine Negative ng/ml (<200)
[2023-04-12 17:35] LABS: Amphetamine/Metha Screen,Urine Negative ng/ml (<1000)
[2023-04-12 17:37] LABS: Benzodiazepines Screen,Urine Negative ng/ml (<200); Cocaine Screen,Urine Negative ng/ml (<300)
[2023-04-12 17:38] LABS: Cannabinoid Screen,Urine Positive ng/ml (<50)
[2023-04-12 17:41] LABS: Methadone Screen,Urine Negative ng/ml (<300); Phencyclidine Screen,Urine Negative ng/ml (<25)
[2023-04-12 17:42] LABS: Opiate Screen,Urine Positive ng/ml (<300)
== END ==
PROVIDERS: PCP Emergency Medicine; Visit Provider Emergency Medicine
DX: Z79.899 Other long term (current) drug therapy (principal)
CPT/HCPCS: 80305

== ENCOUNTER → 2023-06-08 08:42 | Outpatient (CLI) | payer MEDICAID, SELFPAY ==
[2023-06-08 23:36] LABS: Amphetamine/Metha Screen,Urine Negative ng/ml (<1000)
[2023-06-08 23:37] LABS: Barbiturates Screen,Urine Negative ng/ml (<200)
[2023-06-08 23:38] LABS: Benzodiazepines Screen,Urine Negative ng/ml (<200); Cannabinoid Screen,Urine Positive ng/ml (<50)
[2023-06-08 23:39] LABS: Cocaine Screen,Urine Positive ng/ml (<300)
[2023-06-08 23:40] LABS: Methadone Screen,Urine Negative ng/ml (<300); Opiate Screen,Urine Negative ng/ml (<300)
[2023-06-08 23:41] LABS: Phencyclidine Screen,Urine Negative ng/ml (<25)
== END ==
PROVIDERS: PCP Emergency Medicine; Visit Provider Emergency Medicine
DX: N39.0 Urinary tract infection, site not specified (principal); Z79.899 Other long term (current) drug therapy
CPT/HCPCS: 80305; 87086

== ENCOUNTER → 2023-06-15 13:31 | Outpatient (CLI) | payer MEDICAID, SELFPAY ==
[2023-06-15 15:59] LABS: Amphetamine/Metha Screen,Urine Negative ng/ml (<1000)
[2023-06-15 16:00] LABS: Barbiturates Screen,Urine Negative ng/ml (<200); Benzodiazepines Screen,Urine Negative ng/ml (<200)
[2023-06-15 16:02] LABS: Cannabinoid Screen,Urine Positive ng/ml (<50); Cocaine Screen,Urine Negative ng/ml (<300)
[2023-06-15 16:03] LABS: Methadone Screen,Urine Negative ng/ml (<300)
[2023-06-15 16:04] LABS: Opiate Screen,Urine Negative ng/ml (<300); Phencyclidine Screen,Urine Negative ng/ml (<25)
== END ==
PROVIDERS: PCP Emergency Medicine; Visit Provider Emergency Medicine
DX: Z02.1 Encounter for pre-employment examination (principal)
CPT/HCPCS: 80305

== ENCOUNTER → 2023-07-05 08:49 | Outpatient (CLI) | payer MEDICAID, SELFPAY ==
[2023-07-05 18:59] LABS: Basophils % 0.7 % (0.1-2.0); Eosinophils # 0.2 K/mm3 (0.0-0.4); Eosinophils % 3.1 % (0.1-12.0); Hematocrit 42.6 % (37.0-47.0); Hemoglobin 14.8 g/dL (12.2-16.2); Lymphocytes % 35.6 % (10-50); Mean Corpuscular HGB Conc 34.6 g/dL (31.8-35.4); Mean Corpuscular Volume 95.2 fl (81-99); Mean Platelet Volume 9.5 fl (7.4-10.4); Monocytes # 0.4 K/mm3 (0.1-1.0); Monocytes % 7.7 % (1.7-9.3); Neutrophils % 52.9 % (37.0-80.0); Platelet Count 247 K/mm3 (142-424); Red Blood Count 4.48 M/mm3 (4.20-5.40); Red Cell Distribution Width 13.7 % (11.5-17.5); White Blood Count 5.6 K/mm3 (4.8-10.8)
[2023-07-05 20:04] LABS: Alanine Aminotransferase 13 U/L (12-78); Albumin Level 4.1 g/dl (3.5-5.0); Albumin/Globulin Ratio 1.5 (1.1-1.8); Alkaline Phosphatase 63 U/L (38-126); Aspartate Amino Transferase 21 U/L (14-36); Bilirubin,Total 0.4 mg/dl (0.2-1.3); Blood Urea Nitrogen 12 mg/dl (7-17); Calcium 8.7 mg/dl (8.4-10.2); Carbon Dioxide 27 mmol/L (22.0-30.0); Chloride 106 mmol/L (98-107); Estimated Glomerular Filt Rate 70 ml/min (>60); GFR (African American) 84 ML/MIN (>60); Globulin 2.8 g/dL (1.3-3.2); Glucose 88 mg/dl (74-100); Sodium 130 mmol/L (136-145); Total Protein,Serum 6.9 g/dl (6.3-8.2)
[2023-07-05 20:32] LABS: Thyroid Stimulating Hormone 3.82 uIU/mL (0.465-4.68)
[2023-07-05 23:05] LABS: Barbiturates Screen,Urine Negative ng/ml (<200)
[2023-07-05 23:06] LABS: Benzodiazepines Screen,Urine Negative ng/ml (<200)
[2023-07-05 23:07] LABS: Amphetamine/Metha Screen,Urine Negative ng/ml (<1000)
[2023-07-05 23:08] LABS: Cocaine Screen,Urine Negative ng/ml (<300)
[2023-07-05 23:09] LABS: Cannabinoid Screen,Urine Positive ng/ml (<50); Methadone Screen,Urine Negative ng/ml (<300)
[2023-07-05 23:10] LABS: Opiate Screen,Urine Negative ng/ml (<300); Phencyclidine Screen,Urine Negative ng/ml (<25)
== END ==
PROVIDERS: PCP Internal Medicine; Visit Provider Internal Medicine
DX: R53.83 Other fatigue (principal); F41.9 Anxiety disorder, unspecified; Z79.899 Other long term (current) drug therapy
CPT/HCPCS: 80053; 80305; 84443; 85025

== ENCOUNTER 2023-08-09 19:09 | Outpatient (CLI) | payer MEDICAID, SELFPAY ==
[2023-08-09 22:57] LABS: Amphetamine/Metha Screen,Urine Negative ng/ml (<1000)
[2023-08-09 22:58] LABS: Barbiturates Screen,Urine Negative ng/ml (<200); Benzodiazepines Screen,Urine Positive ng/ml (<200)
[2023-08-09 22:59] LABS: Cannabinoid Screen,Urine Positive ng/ml (<50)
[2023-08-09 23:00] LABS: Cocaine Screen,Urine Negative ng/ml (<300); Methadone Screen,Urine Negative ng/ml (<300)
[2023-08-09 23:01] LABS: Opiate Screen,Urine Negative ng/ml (<300); Phencyclidine Screen,Urine Negative ng/ml (<25)
[2023-08-14 11:22] LABS: Alprazolam Positive (.); Benzodiazepines Positive ng/mL (Cutoff=100); Clonazepam Negative (Cutoff=100); Flurazepam Negative (Cutoff=100); Lorazepam Negative (Cutoff=100); Midazolam Negative (Cutoff=100); Oxycodone Positive (.); Oxycodone Confirm 2198 ng/mL (Cutoff=100); Oxymorphone Positive (.); Oxymorphone Confirm 1300 ng/mL (Cutoff=100); Temazepam Negative (Cutoff=100); Triazolam Negative (Cutoff=100)
[2023-08-17 11:39] LABS: Gabapentin,Urine 484.9 ug/mL (.)
== END 2023-08-09 23:59 ==
LOC: LAB.DROPOF 19:09
PROVIDERS: PCP Nurse Practitioner Family; Visit Provider Nurse Practitioner Family
DX: Z79.899 Other long term (current) drug therapy (principal); G89.29 Other chronic pain
CPT/HCPCS: 80307; 80346; 80365

== ENCOUNTER → 2023-08-10 14:10 | Outpatient (POV) | payer MEDICAID, SELFPAY ==
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
[2023-08-10 14:43] VITALS: BP 110/81; PULSE 112; RESP 18; O2SAT 95; BMI 21.7
== END ==
LOC: SC.PAIN 14:11
PROVIDERS: PCP Internal Medicine; Visit Provider Nurse Practitioner Family
DX: M54.42 Lumbago with sciatica, left side (principal); M54.41 Lumbago with sciatica, right side; G89.29 Other chronic pain; M54.2 Cervicalgia; M25.551 Pain in right hip; M25.552 Pain in left hip; M46.1 Sacroiliitis, not elsewhere classified
CPT/HCPCS: 99202; G0463

== ENCOUNTER 2023-08-23 10:16 | Day surgery (SDC) | payer MEDICAID, SELFPAY ==
[2023-08-23 10:33] VITALS: BP 122/77; PULSE 86; RESP 16; TEMP 36.8; O2SAT 99; BMI 22.3
[2023-08-23] MEDS: BUPIVACAINE 0.25% 10ML INJ 25 MG IJ (10:42)
[2023-08-23 10:43] VITALS: BP 119/68; PULSE 77; RESP 18; O2SAT 100
[2023-08-23] MEDS: methylPREDNISolone ACETATE 80MG/ML VIAL 80 MG (10:43)
[2023-08-23] MEDS: LIDOCAINE 1% 5ML PF VIAL 5 ML (10:43)
[2023-08-23 10:44] VITALS: BP 119/68; PULSE 84; RESP 18; O2SAT 100
--- NOTE | 2023-08-23 10:46 | P.PCN_ITS ---
Procedure Date: 08/23/23 Time: 10:40 Anesthesiologist:: Chivo Martinez CRNA Complications:: None Pre-procedure Diagnosis:: Bilateral sacroiliitis. Post-procedure Diagnosis:: Same. Indications for Procedure:: Patient is a very pleasant 38-year-old female comes our clinic today for bilateral sacroiliac joint injection. Patient reports bilateral posterior hip pain. Also reports low lumbar back pain off the midline bilaterally. She rates her pain 7/10. Procedure Details:: Procedure: Bilateral sacroiliac joint injections under fluoroscopy Informed consent was obtained and the risks and benefits of the procedure were explained to the patient.~ The patient was taken to the procedure room and noninvasive monitors were placed including a noninvasive blood pressure cuff and pulse oximeter.~ The patient was placed prone on the procedure table. Both hips were cleansed using Betadine as a cleansing solution. C-arm fluoroscopy was used to view the right sacroiliac joint.~ The skin and subcutaneous tissues were anesthetized using lidocaine 1.5% and a 25-gauge needle.~ After this, a 22-gauge spinal needle was inserted under fluoroscopic guidance into the inferior aspect of the right sacroiliac joint.~ Omnipaque dye was injected and good spread was seen throughout the joint.~ After this, approximately 5 mL of bupivacaine, 0.25% and Depo-Medrol, 40 mg was incrementally injected into the right sacroiliac joint. We then moved to the left sacroiliac joint.~ The skin and subcutaneous tissues were anesthetized using lidocaine 1.5% and a 25-gauge needle.~ After this, a 22- gauge spinal needle was inserted under fluoroscopic guidance into the inferior aspect of the left sacroiliac joint.~ Omnipaque dye was injected and good spread was seen throughout the joint. After this, approximately 5 mL of bupivacaine, 0.25% and Depo-Medrol, 40 mg was incrementally injected into the left sacroiliac joint.~ The patient tolerated the procedure well with no complications. The patient was observed in the Pain Clinic and then was discharged home neurologically intact. Plan and Disposition:: Patient was discharged without incident.
[2023-08-23 10:50] VITALS: BP 123/78; PULSE 77; RESP 16; O2SAT 99
== END 2023-08-23 10:50 | disposition home or self-care (01) ==
PROVIDERS: PCP Internal Medicine; Visit Provider Nurse Anesthetist, Certified Registered
DX: M46.1 Sacroiliitis, not elsewhere classified (principal)
CPT/HCPCS: 27096; G0260; J1040

== ENCOUNTER → 2023-09-09 13:32 | Outpatient (POV) | payer MEDICAID, SELFPAY ==
[2023-09-09 13:41] VITALS: BP 137/86; PULSE 87; RESP 18; O2SAT 98; BMI 22.3
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
== END ==
LOC: SC.PAIN 13:32
PROVIDERS: PCP Internal Medicine; Visit Provider Nurse Practitioner Family
DX: M51.16 Intervertebral disc disorders with radiculopathy, lumbar region (principal); M46.1 Sacroiliitis, not elsewhere classified; M25.551 Pain in right hip; M25.552 Pain in left hip; M25.561 Pain in right knee; M25.562 Pain in left knee
CPT/HCPCS: 99212; G0463

== ENCOUNTER 2023-09-09 14:03 | Outpatient (CLI) | payer MEDICAID, SELFPAY ==
--- NOTE | 2023-09-09 14:07 | XR_ITS ---
FINAL REPORT CLINICAL HISTORY: MID BACK PAIN COMPARISON: None FINDINGS: AP, lateral, and swimmer''s views of the thoracic spine were obtained. There is no prior exam for comparison. There is no acute fracture or malalignment. Vertebral body height is preserved. Paraspinal soft tissues are within normal limits. IMPRESSION: No acute osseous abnormality of the thoracic spine. Reviewed, Interpreted and Dictated by Stas Henson III, MD Transcribed by Adriana Lundberg Authenticated and [facility]
== END 2023-09-09 23:59 ==
LOC: RAD 14:04
PROVIDERS: PCP Internal Medicine; Visit Provider Anesthesiology
DX: M54.6 Pain in thoracic spine (principal)
CPT/HCPCS: 72072

== ENCOUNTER 2023-09-27 13:28 | Day surgery (SDC) | payer MEDICAID, SELFPAY ==
[2023-09-27 13:43] VITALS: BP 101/67; PULSE 78; RESP 18; TEMP 36.7; O2SAT 100; BMI 22.8
--- NOTE | 2023-09-27 13:57 | EXP.PAIN.PRO ---
Procedure Date: 09/27/23 Time: 14:00 Anesthesiologist:: Chivo Martinez CRNA Complications:: None Pre-procedure Diagnosis:: Degenerative disc lumbar spine multilevels. Lumbar radiculopathy. Post-procedure Diagnosis:: Same Indications for Procedure:: Patient is a pleasant 38-year-old female comes to clinic today for lumbar epidural steroid injection at L5-S1 level. Patient reports low back pain as well as bilateral hip and leg radicular symptoms. She rates her pain 7/10. Procedure Details:: Procedure: Lumbar epidural steroid injection under fluoroscopy Informed consent was obtained and the risks and benefits of the procedure were explained to the patient. The patient was taken to the procedure room and noninvasive monitors placed, including noninvasive blood pressure cuff and pulse oximeter. The back was viewed using C-arm Fluoroscopy and prepped using Chloraprep as a cleansing solution and the L5-S1 interspace was palpated. Skin and subcutaneous tissues were anesthetized using lidocaine 1.5% and a 25-gauge needle. After this, an 18-gauge Touhy epidural needle was placed into the L5-S1 interspace and advanced using fluoroscopic guidance and loss of resistance to air until the epidural space was encountered. After confirmation of needle placement in the epidural space, with dye, a solution containing normal saline, 3 mL and Depo-Medrol 80 mg were incrementally injected into the lumbar epidural space. The patient tolerated the procedure well with no complications. The patient was observed in the Pain Clinic and then discharged home neurologically intact. Plan and Disposition:: Patient was discharged without incident.
[2023-09-27 14:00] VITALS: BP 99/60; PULSE 60; RESP 18; O2SAT 100
[2023-09-27 14:50] VITALS: BP 92/56; PULSE 68; RESP 18; O2SAT 100
[2023-09-27] MEDS: methylPREDNISolone ACETATE 80MG/ML VIAL 80 MG (14:50)
[2023-09-27 14:51] VITALS: BP 92/56; PULSE 68; RESP 18; O2SAT 100
== END 2023-09-27 14:00 | disposition home or self-care (01) ==
PROVIDERS: PCP Internal Medicine; Visit Provider Nurse Anesthetist, Certified Registered
DX: M51.16 Intervertebral disc disorders with radiculopathy, lumbar region (principal)
CPT/HCPCS: 62323; J1040

== ENCOUNTER 2023-10-13 13:43 | Outpatient (POV) | payer MEDICAID, SELFPAY ==
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
[2023-10-13 14:31] VITALS: BP 119/85; PULSE 90; RESP 18; O2SAT 99; BMI 23.6
== END 2023-10-13 23:59 | disposition home or self-care (01) ==
PROVIDERS: PCP Internal Medicine; Visit Provider Nurse Practitioner Family
DX: M51.16 Intervertebral disc disorders with radiculopathy, lumbar region (principal); M46.1 Sacroiliitis, not elsewhere classified
CPT/HCPCS: 99212; G0463

== ENCOUNTER 2023-10-13 14:49 | Outpatient (CLI) | payer MEDICAID, SELFPAY ==
--- NOTE | 2023-10-13 14:55 | MR_ITS ---
FINAL REPORT CLINICAL HISTORY: MID BACK PAIN FINDINGS: Multiplanar MR imaging of the thoracic spine was performed without contrast. On the sagittal T2-weighted images, mild disc degeneration is seen at several levels. There is no evidence of fracture. The vertebral alignment is normal. Several hemangiomas are identified. The thoracic spinal cord has an unremarkable appearance without evidence of mass, edema or syrinx. There is no evidence of canal stenosis or cord compression. On the axial images, no focal disc protrusion is identified. There is no evidence of significant canal stenosis. No paraspinous soft tissue abnormality is seen. IMPRESSION: Mild disc degeneration. Reviewed, Interpreted and Dictated by Stas Henson III, MD Transcribed by Alyssa Giraldo Authenticated and [facility]
== END 2023-10-13 23:59 ==
LOC: RAD 14:50
PROVIDERS: PCP Internal Medicine; Visit Provider Nurse Practitioner Family
DX: M54.6 Pain in thoracic spine (principal)
CPT/HCPCS: 72146

== ENCOUNTER 2023-10-26 15:33 | Outpatient (POV) | payer MEDICAID, SELFPAY ==
[2023-10-26 15:39] VITALS: BP 139/83; PULSE 70; RESP 18; O2SAT 99; BMI 22.8
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
== END 2023-10-26 23:59 | disposition home or self-care (01) ==
PROVIDERS: Visit Provider Nurse Practitioner Family
DX: M51.14 Intervertebral disc disorders with radiculopathy, thoracic region (principal); M51.16 Intervertebral disc disorders with radiculopathy, lumbar region; M46.1 Sacroiliitis, not elsewhere classified
CPT/HCPCS: 99212; G0463

== ENCOUNTER 2023-12-05 09:29 | Outpatient (POV) | payer MEDICAID, SELFPAY ==
[2023-12-05 09:46] VITALS: BP 132/74; PULSE 79; RESP 18; O2SAT 98; BMI 23.6
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
== END 2023-12-05 23:59 | disposition home or self-care (01) ==
PROVIDERS: Visit Provider Nurse Practitioner Family
DX: M51.14 Intervertebral disc disorders with radiculopathy, thoracic region (principal); M51.16 Intervertebral disc disorders with radiculopathy, lumbar region; M46.1 Sacroiliitis, not elsewhere classified
CPT/HCPCS: 99212; G0463

== ENCOUNTER 2024-01-05 10:11 | Outpatient (POV) | payer MEDICAID, SELFPAY ==
[2024-01-05 10:25] VITALS: BP 139/81; PULSE 67; RESP 16; O2SAT 100; BMI 22.8
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
== END 2024-01-05 23:59 | disposition home or self-care (01) ==
PROVIDERS: Visit Provider Nurse Practitioner Family
DX: M51.14 Intervertebral disc disorders with radiculopathy, thoracic region (principal); M51.16 Intervertebral disc disorders with radiculopathy, lumbar region; M46.1 Sacroiliitis, not elsewhere classified
CPT/HCPCS: 99212; G0463